=== PATIENT | male | born 1975 | race Caucasian/White ===

== ENCOUNTER 2018-02-04 00:33 | Inpatient (IN) ==
[2018-02-04 01:05] LABS: Bilirubin,Urine Negative (Negative); Blood,Urine Negative (Negative); Clarity,Urine Turbid (Clear); Color,Urine Yellow (Yellow); Glucose,Urine (UA) Normal (Normal); Ketones,Urine Negative (Negative); Leukocyte Esterase,Urine Trace (Negative); Nitrite,Urine Negative (Negative); PH,Urine 6.5 pH Units (5.0-8.0); Protein,Urine Negative (Neg-Trace); Specific Gravity,Urine 1.015 (1.010-1.025); Urobilinogen,Urine Normal (Normal)
[2018-02-04 01:06] LABS: Basophils # 0.1 K/mcL (0.0-0.2); Basophils % 0.6 %; Eosinophils # 0.2 K/mcL (0.0-0.6); Eosinophils % 2.1 %; Hemoglobin 13.9 g/dL (12.9-16.9); Immature Granulocytes % 0.4 % (0-4); Lymphocytes # 1.4 K/mcL (0.6-4.6); Lymphocytes % 17.8 %; Mean Corpuscular HGB Conc 34.8 g/dL (31.6-35.5); Mean Corpuscular Hemoglobin 32.9 pg (28.0-33.3); Mean Corpuscular Volume 94.8 fL (83.0-100.0); Mean Platelet Volume 10.7 fL (9.4-12.4); Monocytes # 0.7 K/mcL (0.0-1.3); Monocytes % 8.4 %; Neutrophils # 5.5 K/mcL (1.6-8.9); Platelet Count 202 K/mcL (140-400); Red Blood Count 4.22 M/mcL (4.19-5.50); Red Cell Distribution Width 13.2 % (11.5-14.5); Segmented Neutrophils % 70.7 %
[2018-02-04 01:08] LABS: Bacteria,Urine None Seen per hpf (None-Few); Hyaline Casts,Urine None Seen per lpf (None-Few); Squamous Epithelial Cell,Urine Few per lpf (None-Few); WBC,Urine 0-3 per hpf (0-3)
[2018-02-04 01:13] LABS: Amphetamine Screen,Urine Negative ng/mL (Cutoff=1000); Barbiturate Screen,Urine Negative ng/mL (Cutoff=200); Benzodiazepines Screen,Urine Negative ng/mL (Cutoff=200); Cannabinoid Screen,Urine Negative ng/mL (Cutoff = 50); Cocaine Screen,Urine Negative ng/mL (Cutoff= 300); Opiate Screen,Urine Negative ng/mL (Cutoff=300); Phencyclidine Screen,Urine Negative ng/mL (Cutoff=25)
[2018-02-04 01:26] LABS: Acetaminophen < 10 mcg/mL (10-20); BUN/Creatinine Ratio 14 (6-26); Blood Urea Nitrogen 10 mg/dL (6-20); Calcium 9.2 mg/dL (8.6-10.3); Carbon Dioxide 26 mEq/L (23-29); Chloride 108 mEq/L (98-107); Ethanol < 10 mg/dL (Less than 10); Glucose 98 mg/dL (70-105); Osmolality,Calculated 289 (280-300); Potassium 3.6 mEq/L (3.5-5.1); Salicylate < 2.5 mg/dL (15.0-30.0); Sodium 140 mEq/L (136-145); eGFR For Non-African Americans > 60 (> 60)
--- NOTE | 2018-02-04 02:10 | Emergency Department Note ---
Disposition Clinical Impression: Medication refill, History of bipolar disorder Disposition: Admitted As Inpatient Condition: Good Time of Disposition: 03:15 General Adult HPI - General Chief complaint: ED Psychiatric Symptoms Stated complaint: psych Time Seen by Provider: 02/04/18 00:35 Source: patient, EMS Mode of arrival: ambulatory Limitations: no limitations Nursing Notes Reviewed: Yes Vital Signs Reviewed: Yes - History of Present Illness HPI Narrative: Patient is a 6-year-old male with a past medical history of bipolar disorder as well as history of drug use presents to the emergency department for medication refill. The patient states that he has not been taking his bipolar medications for the past 3 years and cannot recall the name of them however he does remember taking Seroquel does not recall the others. He states that he is having issues sleeping at night and is also feeling depressed and worthless. He denies any visual or auditory hallucinations. He denies any SI or HI. Pain Scale: 0 - Related Data Previous Rx's Medication Instructions Recorded Quetiapine Fumarate [Seroquel] 200 mg PO HS #60 tablet 04/02/16 Quetiapine Fumarate [SEROquel] 50 mg PO BID #10 tablet 07/30/17 Ibuprofen [Motrin] 600 mg PO Q8HR PRN #30 tab 01/28/18 Allergies Allergy/AdvReac Type Severity Reaction Status Date / Time chlorpromazine Allergy See Verified 07/30/17 01:51 [From Thorazine] Comments All systems ED: reviewed and negative except as stated. Review of Systems: As Per HPI Constitutional: Denies: fever Cardiovascular: Denies: chest pain, palpitations Respiratory: Denies: cough Gastrointestinal: Denies: abdominal pain, nausea Psychiatric: Reports: depression. Denies: anxiety, suicidal thoughts, homicidal thoughts, auditory hallucinations, visual hallucinations Past Medical History - Past Medical History Attestation: Yes The following information was validated with the patient. Medical history: Reports: no medical history, other Surgical history: Reports: no surgical history Psychiatric history: Reports: anxiety, depression, previous psychiatric hospitalization, other - Social History Smoking Status: Current every day smoker Smokeless Tobacco Status: No Alcohol use: Reports: occasionally Drug use: Reports: opiates, marijuana Physical Exam CONSTITUTIONAL: Alert and oriented X3, well-nourished, well appearing, in no apparent distress HEAD: Normocephalic; atraumatic. EYES: PERRL, no scleral icterus. NOSE: The nose is normal in appearance without rhinorrhea RESP: Normal chest excursion with respiration; breath sounds clear and equal bilaterally; no wheezes, rhonchi, or rales CARD: Regular rhythm, without murmurs, rub or gallop ABD: Non-distended; non-tender, soft,without rigidity, rebound or guarding SKIN: Normal for age and race; warm and dry; no apparent lesion PSYCH: Normal affect. Denies HI or SI. - General Limitations: no limitations General appearance: alert, in no apparent distress Course Course Narrative: Discussed plan at this time is for him to undergo medical clearance and then consultation with the 1A team. Patient agrees with this plan. - Reevaluation(s) Reevaluation #1: Patient accepted voluntarily to the A1 team for medication reconciliation. Vital Signs Temperature 98.2 F 02/04/18 00:37 Pulse Rate 73 02/04/18 00:37 Respiratory Rate 16 02/04/18 00:37 Blood Pressure 114/77 02/04/18 00:37 O2 Sat by Pulse Oximetry 98 02/04/18 00:37 Temperature 98.5 F 02/04/18 03:27 Pulse Rate 76 02/04/18 03:27 Respiratory Rate 18 02/04/18 03:27 Blood Pressure 123/84 02/04/18 03:27 O2 Sat by Pulse Oximetry 98 02/04/18 00:37 Oxygen Delivery Oxygen Delivery Room Air Medical Decision Making - Medical Records Medical records reviewed: Yes I reviewed the patient's medical records. - Lab Data Lab results reviewed: Yes I reviewed the patient's lab results. Result diagrams: 02/04/18 00:52 02/04/18 00:52 Lab Results 02/04/18 02/04/18 02/04/18 Range/Units 00:45 00:45 00:52 WBC 7.8 (4.3-11.1) K/mcL RBC 4.22 (4.19-5.50) M/mcL Hgb 13.9 (12.9-16.9) g/dL Hct 40.0 (37.5-50.1) % MCV 94.8 (83.0-100.0) fL MCH 32.9 (28.0-33.3) pg MCHC 34.8 (31.6-35.5) g/dL RDW 13.2 (11.5-14.5) % Plt Count 202 (140-400) K/mcL MPV 10.7 (9.4-12.4) fL Immature Gran % 0.4 (0-4) % Seg Neutrophils % 70.7 % Lymphocytes % 17.8 % Monocytes % 8.4 % Eosinophils % 2.1 % Basophils % 0.6 % Neutrophils # 5.5 (1.6-8.9) K/mcL Lymphocytes # 1.4 (0.6-4.6) K/mcL Monocytes # 0.7 (0.0-1.3) K/mcL Eosinophils # 0.2 (0.0-0.6) K/mcL Basophils # 0.1 (0.0-0.2) K/mcL Sodium (136-145) mEq/L Potassium (3.5-5.1) mEq/L Chloride (98-107) mEq/L Carbon Dioxide (23-29) mEq/L BUN (6-20) mg/dL Creatinine (0.70-1.30) mg/dL Est GFR ( Amer) (> 60) Est GFR (Non-Af Amer) (> 60) BUN/Creatinine Ratio (6-26) Glucose (70-105) mg/dL Calculated Osmolality (280-300) Calcium (8.6-10.3) mg/dL Urine Color Yellow (Yellow) Urine Clarity Turbid A (Clear) Urine pH 6.5 (5.0-8.0) pH Units Ur Specific [place] 1.015 (1.010-1.025) Urine Protein Negative (Neg-Trace) mg/dL Urine Glucose (UA) Normal (Normal) mg/dL Urine Ketones Negative (Negative) mg/dL Urine Blood Negative (Negative) Urine Nitrite Negative (Negative) Urine Bilirubin Negative (Negative) Urine Urobilinogen Normal (Normal) mg/dL Ur Leukocyte Esterase Trace H (Negative) Urine Microscopic RBC 5-15 H (0-3) per hpf Urine Microscopic WBC 0-3 (0-3) per hpf Ur Squamous Epith Cells Few (None-Few) per lpf Urine Bacteria None Seen (None-Few) per hpf Hyaline Casts None Seen (None-Few) per lpf Salicylates (15.0-30.0) mg/dL Urine Opiates Screen Negative (Ywhniw=818) ng/mL Acetaminophen (10-20) mcg/mL Ur Barbiturates Screen Negative (Kohujb=137) ng/mL Ur Phencyclidine Scrn Negative (Cutoff=25) ng/mL Ur Amphetamines Screen Negative (Oomgaa=8162) ng/mL U Benzodiazepines Scrn Negative (Duyieg=944) ng/mL Urine Cocaine Screen Negative (Cutoff= 300) ng/mL U Marijuana (THC) Screen Negative (Cutoff = 50) ng/mL Ur Drug Screen Interp See Below Ethyl Alcohol (Less than 10) mg/dL 02/04/18 Range/Units 00:52 WBC (4.3-11.1) K/mcL RBC (4.19-5.50) M/mcL Hgb (12.9-16.9) g/dL Hct (37.5-50.1) % MCV (83.0-100.0) fL MCH (28.0-33.3) pg MCHC (31.6-35.5) g/dL RDW (11.5-14.5) % Plt Count (140-400) K/mcL MPV (9.4-12.4) fL Immature Gran % (0-4) % Seg Neutrophils % % Lymphocytes % % Monocytes % % Eosinophils % % Basophils % % Neutrophils # (1.6-8.9) K/mcL Lymphocytes # (0.6-4.6) K/mcL Monocytes # (0.0-1.3) K/mcL Eosinophils # (0.0-0.6) K/mcL Basophils # (0.0-0.2) K/mcL Sodium 140 (136-145) mEq/L Potassium 3.6 (3.5-5.1) mEq/L Chloride 108 H (98-107) mEq/L Carbon Dioxide 26 (23-29) mEq/L BUN 10 (6-20) mg/dL Creatinine 0.74 (0.70-1.30) mg/dL Est GFR ( Amer) > 60 (> 60) Est GFR (Non-Af Amer) > 60 (> 60) BUN/Creatinine Ratio 14 (6-26) Glucose 98 (70-105) mg/dL Calculated Osmolality 289 (280-300) Calcium 9.2 (8.6-10.3) mg/dL Urine Color (Yellow) Urine Clarity (Clear) Urine pH (5.0-8.0) pH Units Ur Specific [place] (1.010-1.025) Urine Protein (Neg-Trace) mg/dL Urine Glucose (UA) (Normal) mg/dL Urine Ketones (Negative) mg/dL Urine Blood (Negative) Urine Nitrite (Negative) Urine Bilirubin (Negative) Urine Urobilinogen (Normal) mg/dL Ur Leukocyte Esterase (Negative) Urine Microscopic RBC (0-3) per hpf Urine Microscopic WBC (0-3) per hpf Ur Squamous Epith Cells (None-Few) per lpf Urine Bacteria (None-Few) per hpf Hyaline Casts (None-Few) per lpf Salicylates < 2.5 L (15.0-30.0) mg/dL Urine Opiates Screen (Rurwpa=688) ng/mL Acetaminophen < 10 L (10-20) mcg/mL Ur Barbiturates Screen (Rvmjyp=509) ng/mL Ur Phencyclidine Scrn (Cutoff=25) ng/mL Ur Amphetamines Screen (Ekglhn=6629) ng/mL U Benzodiazepines Scrn (Msiypg=114) ng/mL Urine Cocaine Screen (Cutoff= 300) ng/mL U Marijuana (THC) Screen (Cutoff = 50) ng/mL Ur Drug Screen Interp Ethyl Alcohol < 10 (Less than 10) mg/dL Attestation Statement - Attestation Attestation: I examined this patient and my medical decision-making was reviewed with the Resident Physician. I agree with the documented findings, disposition and treatment plan as described except to the extent set forth below. Patient not been taking his bipolar medications, he is feeling hopeless and helpless. He is not suicidal or homicidal. He was a value to by [facility] and they are recommending admission. He will be admitted on a voluntary basis.
[2018-02-04] MEDS ORDERED: traZODone 50 MG TABLET PO PRN (03:14)
[2018-02-04] MEDS ORDERED: Mag Hydrox/Al Hydrox/Simeth 30 ML UDC PO PRN (03:14)
[2018-02-04] MEDS ORDERED: Ibuprofen 400 MG TABLET PO PRN (03:14)
[2018-02-04] MEDS ORDERED: Haloperidol Lactate 5 MG/ML VIAL IM PRN (03:14)
[2018-02-04] MEDS ORDERED: *HR* LORazepam 2 MG/ML VIAL IM PRN (03:14)
[2018-02-04] MEDS ORDERED: hydrOXYzine pamoate 25 MG CAPSULE PO PRN (03:14)
[2018-02-04] MEDS ORDERED: *HR* LORazepam 1 MG TABLET PO PRN (03:14)
[2018-02-04] MEDS ORDERED: Nicotine 2 MG GUM BC PRN (03:14)
[2018-02-04] MEDS ORDERED: MOM Conc 10 ML UD.LIQ PO PRN (03:14)
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
--- NOTE | 2018-02-05 11:54 | Psychiatry Progress Note ---
Date of Encounter: 02/05/18 Time of Encounter: 11:45 Subjective Interval history: D the patient is a 42-year-old white male with adjustment disorder. Chief complaint: I was able to sleep better. I think academically increased but not to 900. I think that messed me up before. The patient has major concerns regarding his residential resources his ability to get his money and food stamps. Outside information suggests that he had community action for his funds. The patient is to see the forensic social worker to discuss these concerns. Nonetheless he does not think that he is his optimal dose of Seroquel. He notes no particular side effects to the medicine at this time. He notes previously he lost weight as he was active and had limited resources of places to eat. Review of Systems Psychiatric: Reports: depression, suicidal ideation, change in appetite Results - Vital Signs Vital Signs: Temp Pulse Resp BP Pulse Ox 98.2 F 57 16 131/70 98 02/05/18 09:00 02/05/18 09:00 02/05/18 09:00 02/05/18 09:00 02/04/18 00:37 Assessment and Plan (1) Adjustment disorder with depressed mood Current visit: Yes Status: Acute Plan: Continue hospitalization, Close observation, Suicide Precautions per unit protocol, Encourage participation in unit milieu, Group Therapy, Monitor sleep, Monitor appetite, Secure weapons, Family/Supportive other meeting Risks, benefits, side effects, alternatives discussed w/pt: Yes Patient agreeable to treatment: Yes (2) Cigarette smoker Current visit: Yes Status: Chronic Plan: Other Risks, benefits, side effects, alternatives discussed w/pt: Yes Patient agreeable to treatment: Yes (3) Suicidal ideation Current visit: No Status: Acute Plan: Encourage participation in unit milieu, Group Therapy Risks, benefits, side effects, alternatives discussed w/pt: Yes Patient agreeable to treatment : Yes (4) Alcohol dependence Current visit: No Status: Chronic Plan: Monitor appetite Risks, benefits, side effects, alternatives discussed w /pt: Yes Patient agreeable to treatment: Yes Qualifiers: Substance use status: with intoxication Complication of substance-induced condition: uncomplicated Qualified Code(s): F10.220 - Alcohol dependence with intoxication, uncomplicated (5) Antisocial personality disorder Current visit: No Status: Chronic Plan: Encourage participation in unit milieu, Group Therapy Risks, benefits, side effects, alternatives discussed w/pt: Yes Patient agreeable to treatment : Yes Consult Discharge Plan - Plan Referrals: NONE,PCP [Primary Care Provider] - Psychiatry Exam - Constitutional Vitals: Temp Pulse Resp BP Pulse Ox 98.2 F 57 16 131/70 98 02/05/18 09:00 02/05/18 09:00 02/05/18 09:00 02/05/18 09:00 02/04/18 00:37 General appearance: age & developmentally appropriate, well-groomed, thin - Musculoskeletal Gait: normal, brisk Station: relaxed Strength & Tone: normal for patient - Psychiatric Patient Orientation: Yes Person, Yes Time, Yes Place Level of alertness: Alert Behavior: calm, cooperative Psychomotor activity: Normal Eye Contact: Maintains Eye Contact Mood Description: Depressed Affect description: congruent with mood, full range, dysphoric Speech Volume: Normal Speech pattern: normal rate, normal rhythm, normal tone, fluent, spontaneous Language & Vocabulary: consistent with education Thought Process: Linear, Goal Oriented Thought Content: Yes Suicidal ideation, No Homicidal ideation, No Overt delusions Perceptual Disturbances: No Auditory hallucinations, No Visual hallucinations Attention Span Ability: Capable of Focused Attention Memory Description: Grossly Intact Patient Reliability: Reliable Historian Fund of knowledge: Yes abstraction ability, Yes average Intelligence Estimate: Average Judgment: Fair Insight: Partial
--- NOTE | 2018-02-06 13:37 | Psychiatry Progress Note ---
Date of Encounter: 02/06/18 Time of Encounter: 13:30 Subjective Interval history: ID: 42 yo W Male CC: I sleep good HPI: The patient has slept better. Throughout this period of time. The patient has been reported no suicidal ideation. He has been stable. He has not cooperated fully in his discharge planning to this point but he tells me that he is aware that he could go to the homeless prison or he could go to a friend's house. The patient would agrees to an increase of Seroquel from 400 600. This is used in some studies as a loading dose. I offered the opportunity to go to 800 mg tomorrow but the patient would like to be considered for discharge soon so that he can get out and see his community recreation coordinator to help with financial matters. Side effects of Seroquel were discussed. The need for abstinence was discussed the drug alcohol interaction was discussed. Review of Systems Psychiatric: Reports: depression, change in appetite Results - Vital Signs Vital Signs: Temp Pulse Resp BP Pulse Ox 97.3 F L 87 14 93/66 98 02/06/18 09:00 02/06/18 09:00 02/06/18 09:00 02/06/18 09:00 02/04/18 00:37 Assessment and Plan (1) Adjustment disorder with depressed mood Current visit: Yes Status: Acute Risks, benefits, side effects, alternatives discussed w/pt: Yes Patient agreeable to treatment: Yes (2) Cigarette smoker Current visit: Yes Status: Chronic Risks, benefits, side effects, alternatives discussed w/pt: Yes Patient agreeable to treatment: Yes (3) Suicidal ideation Current visit: No Status: Acute Risks, benefits, side effects, alternatives discussed w/pt: Yes Patient agreeable to treatment: Yes (4) Alcohol dependence Current visit: No Status: Chronic Risks, benefits, side effects, alternatives discussed w/pt: Yes Patient agreeable to treatment: Yes Qualifiers: Substance use status: with intoxication Complication of substance-induced condition: uncomplicated Qualified Code(s): F10.220 - Alcohol dependence with intoxication, uncomplicated (5) Antisocial personality disorder Current visit: No Status: Chronic Risks, benefits, side effects, alternatives discussed w/pt: Yes Patient agreeable to treatment: Yes Consult Discharge Plan - Plan Referrals: NONE,PCP [Primary Care Provider] - Psychiatry Exam - Constitutional Vitals: Temp Pulse Resp BP Pulse Ox 97.3 F L 87 14 93/66 98 02/06/18 09:00 02/06/18 09:00 02/06/18 09:00 02/06/18 09:00 02/04/18 00:37 General appearance: age & developmentally appropriate, well-groomed, well- nourished - Musculoskeletal Gait: normal Station: relaxed Strength & Tone: normal for patient - Psychiatric Patient Orientation: Yes Person, Yes Time, Yes Place Level of alertness: Alert Behavior: calm, cooperative Psychomotor activity: Normal Eye Contact: Maintains Eye Contact Mood Description: Depressed Affect description: congruent with mood, full range Speech Volume: Normal Speech pattern: normal rate, normal rhythm, normal tone, fluent, spontaneous Language & Vocabulary: consistent with education Thought Process: Linear, Goal Oriented Thought Content: No Suicidal ideation, No Homicidal ideation, No Overt delusions Perceptual Disturbances: No Auditory hallucinations, No Visual hallucinations Attention Span Ability: Capable of Focused Attention Memory Description: Grossly Intact Patient Reliability: Reliable Historian Fund of knowledge: Yes abstraction ability, Yes aware of current events Intelligence Estimate: Average Judgment: Fair Insight: Partial
[2018-02-07 09:08] VITALS: BP 95/64
--- NOTE | 2018-02-07 10:10 | Discharge Summary ---
Date of Encounter: 02/07/18 Time of Encounter: 10:00 Diagnosis - Discharge Diagnosis (1) Adjustment disorder with depressed mood Status: Acute (2) Cigarette smoker Status: Chronic (3) Suicidal ideation Status: Acute (4) Alcohol dependence Status: Chronic Qualifiers: Substance use status: with intoxication Complication of substance-induced condition: uncomplicated Qualified Code(s): F10.220 - Alcohol dependence with intoxication, uncomplicated (5) Antisocial personality disorder Status: Chronic Medications - Discharge Medications Prescriptions: Quetiapine Fumarate [Seroquel] 600 mg PO HS 30 Days #60 tablet Quetiapine Fumarate [Seroquel] 600 mg PO HS 30 Days #60 tablet 02/07/18 [Rx] 3 Allergy/AdvReac Type Severity Reaction Status Date / Time chlorpromazine Allergy See Verified 07/30/17 01:51 [From Thorazine] Comments Provider Date of admission: 02/04/18 02:27 Primary care physician: PCP NONE Discharging clinician: Romain Long Psychiatry Exam - Constitutional Vitals: Temp Pulse Resp BP Pulse Ox 97.4 F L 84 18 95/64 98 02/07/18 09:00 02/07/18 09:00 02/07/18 09:00 02/07/18 09:00 02/04/18 00:37 General appearance: age & developmentally appropriate - Musculoskeletal Gait: normal Station: other Strength & Tone: normal for patient - Psychiatric Patient Orientation: Yes Person, Yes Time, Yes Place Level of alertness: Alert Behavior: calm, cooperative Psychomotor activity: Normal Eye Contact: Maintains Eye Contact Mood Description: Euthymic/stable Affect description: congruent with mood, full range Speech Volume: Normal Speech pattern: normal rate, normal rhythm, normal tone, fluent, spontaneous Language & Vocabulary: consistent with education Thought Process: Linear, Goal Oriented Thought Content: No Suicidal ideation, No Homicidal ideation, No Overt delusions Perceptual Disturbances: No Auditory hallucinations, No Visual hallucinations Attention Span Ability: Capable of Focused Attention Memory Description: Grossly Intact Patient Reliability: Reliable Historian Fund of knowledge: Yes abstraction ability, Yes aware of current events Intelligence Estimate: Average Judgment: Limited Insight: Minimal Hospital Course Hospital course: Mr. Griffin is a 42 year old male The patient is a 42-year-old white male he is currently homeless. Chief complaint I had suicidal thinking so I came into the hospital for got worse. History of present illness the patient was previously hospitalized and previously treated for an adjustment disorder. Another diagnosis of a history of major depression disorder was given but the patient did not meet criteria for major depressive episode at the time of admission. Rather he had insomnia and periods of low mood and suicidal ideation without other neurovegetative signs of major depression. The patient responded favorably to the medicine Seroquel. Have significant history of bipolar disorder. But the patient had been in correctional facilities and had not been treated with Seroquel recently due to formulary restrictions. The patient was able to tolerate a modified and increased titration of Seroquel first to 100 mg -200 mg then to 400 mg then to 600 mg at 600 mg he reported sleeping well and tolerating the medicine without significant side effects. The patient planned to follow-up at a local mental health [facility] or stay with friends. He was given information about local resources. He had no suicidal ideation time discharge. Time spent discussing smoking cessation with patient: 3 to 10 minutes Does patient wish to continue nicotine replacement upon disc: No - Time Spent with Patient Total time spent providing and/or coordinating discharge services: Less than 30 minutes Assessment and Plan - Patient/Caregiver Discharge Instructions Activity: resume usual activities as tolerated Diet: regular diet - Follow up Plan Follow up with: Stepan Engel [facility] [Outside] - 02/20/18 2:00 pm (The above appointment is with Milagros. DUE TO PRIOR MISSED APPOINTMENTS, YOU MUST CONFIRM THIS APPOINTMENT WITH IVIS AT [phone] BY 02/11/2018 AT 4:00PM IN ORDER FOR THIS APPOINTMENT TO BE HELD FOR YOU. IF YOU GET IVIS'S VOICEMAIL WHEN YOU CALL TO CONFIRM, LEAVE A MESSAGE TELLING HER YOU PLAN TO ATTEND SO THE APPOINTMENT WILL BE HELD FOR YOU. Please complete and bring the [facility] intake packet you were provided at the hospital to this appointment. When you come to your first appointment, you will be meeting with business office staff, meeting with a counselor, and developing a treatment plan. You will receive follow- up appointments for on-going services, which could include community support, mental health and substance abuse counseling, groups/partial hospitalization programming and medication assisted treatment. You will also need to bring the following to your first appointment as well: 1) proof of income, 2) proof of residency, 3) your social security card, 4) photo ID, 5) your insurance card and 6) if you do not have insurance but have applied for Medicaid, please bring verification you have applied. The above appointment(s) reflects first availability.) Ivis Shaver [Advanced Practice Nurse] - 03/05/18 11:00 am (The above appointment is with Ivis Shaver CNP, at [facility]. This appointment is to establish you with a primary care provider. Your needs for medication and/or Vivitrol will be assessed and treated as indicated as well. Please arrive 15 minutes early to complete paperwork. Please bring your insurance card, photo ID and list of current medications to your first appointment. The above appointment(s) reflects first availability. You may contact the office regularly to check for cancellations that may allow you to be seen sooner.) Functional capacity at discharge: independent ambulation Overall status at discharge: Stable Disposition: Home, Self-Care Quality - Multiple Antipsychotics Patient discharged on 2 or more antipsychotic medications: No Procedures - Procedures Procedures: Medication Management, Crisis Stabilization, Supportive Therapy, Group Therapy, Psychoeducational Therapy
== END 2018-02-07 13:00 | disposition home or self-care (01) | DRG 881 ==
LOC: EMEROOARM 00:33 → SUATTDRO 02:27 → 1ANU 02:27
PROVIDERS: ADMIT Psychiatry & Neurology Psychiatry; ATTEND Psychiatry & Neurology Forensic Psychiatry

== ENCOUNTER 2019-02-12 14:33 | Inpatient (IN) ==
--- NOTE | 2019-02-12 15:06 | Emergency Department Note ---
Disposition Clinical Impression: Manic behavior Disposition: Still a Patient Condition: Good Referrals: NONE,PCP [Primary Care Provider] - Time of Disposition: 17:55 Psych HPI - General Stated Complaint: SI Time Seen by Provider: 02/12/19 14:35 Source: patient Mode of arrival: EMS Limitations: no limitations Nursing Notes Reviewed: Yes Vital Signs Reviewed: Yes - History of Present Illness HPI Narrative: 43-year-old male with a past medical history of previous hospitalization for mental health that reports he has been without his medications for proximally 6 months since going to prison. Pt reports that he is homeless. He reports that he needs his medication and wants to talk to [facility] At some point during our initial encounter, he became beligerent and threatened me if I did not "leave him the fuck alone." I explained to the patient that I needed to medically clear him before he could talk to [facility] and get his medication. One of the tech's explained the situation to him while raising her voice to him and he became more compliant. - Related Data Previous Rx's Medication Instructions Recorded Quetiapine Fumarate [Seroquel] 600 mg PO HS 30 Days #60 tablet 02/07/18 Allergies Allergy/AdvReac Type Severity Reaction Status Date / Time chlorpromazine Allergy See Verified 03/08/18 12:39 [From Thorazine] Comments Constitutional: Denies: fever, chills Cardiovascular: Denies: chest pain, palpitations Gastrointestinal: Denies: abdominal pain, nausea, vomiting, diarrhea Neurological: Denies: headache, weakness Psychiatric: Reports: suicidal thoughts, homicidal thoughts. Denies: auditory hallucinations, visual hallucinations Past Medical History - Past Medical History Attestation: Yes The following information was validated with the patient. Medical history: Reports: no medical history, other Surgical history: Reports: no surgical history Psychiatric history: Reports: anxiety, depression, previous psychiatric ho spitalization - Social History Smoking Status: Current every day smoker Smokeless Tobacco Status: No Alcohol use: Reports: occasionally Drug use: Reports: opiates, marijuana, prescription drug abuse, other Physical Exam General: Agitated. Verbally combative. Appears older than stated age. Thin. Head: atraumatic, normocephalic. ENT: No conjunctival injection, no scleral icterus. Neuro: No focal deficits, no speech deficit, no facial droop, mentating well. BUE/BLE Str 5/5. Pulm: Lungs CTAB anteriorly. No wheezes, rales, ronchi. Cardio: RRR no m/r/g. Chest not tender to palpation. Abd: Soft, non-distended. Normoactive bowel sounds. Non-tender to palpation. No guarding. Non rigid. Extremities: Radial pulses 2+ lior, dorsalis pedis/posterior tibialis 2+ lior. No LE edema. No cyanosis, clubbing. Skin: warm, dry, intact. No rashes. Psych: Agitated. Does not appear to be responding to internal stimulus. Pressured speech. Flight of ideas. - General General appearance: alert, in no apparent distress Course Vital Signs Temperature 98.0 F 02/12/19 14:35 Pulse Rate 93 02/12/19 14:35 Respiratory Rate 18 02/12/19 14:35 Blood Pressure 115/86 02/12/19 14:35 O2 Sat by Pulse Oximetry 97 02/12/19 14:35 Temperature 98.0 F 02/12/19 14:35 Pulse Rate 93 02/12/19 14:35 Respiratory Rate 18 02/12/19 14:35 Blood Pressure 115/86 02/12/19 14:35 O2 Sat by Pulse Oximetry 97 02/12/19 14:35 Oxygen Delivery Oxygen Delivery Room Air Psych - MDM Narrative Medical decision making narrative: Will order psych clearance labs and call [facility]. 175: Pt attempted to leave the department and was stopped by security. Will order 5 of Haldol, 2 of Ativan, and 50 of Benadryl IM. Will need to order repeat ethanol level as his first level was elevated. Pt will be signed out to night doc Dr. Doug Lua, please see his note for full results of the workup and dispos ition. - Lab Data Result diagrams: 02/12/19 15:30 02/12/19 15:30 Lab Results 02/12/19 02/12/19 02/12/19 Range/Units 15:30 15:30 17:47 WBC 5.0 (4.3-11.1) K/mcL RBC 4.48 (4.19-5.50) M/mcL Hgb 14.4 (12.9-16.9) g/dL Hct 42.1 (37.5-50.1) % MCV 94.0 (83.0-100.0) fL MCH 32.1 (28.0-33.3) pg MCHC 34.2 (31.6-35.5) g/dL RDW 12.9 (11.5-14.5) % Plt Count 224 (140-400) K/mcL MPV 10.2 (9.4-12.4) fL Immature Gran % 0.2 (0-4) % Seg Neutrophils % 61.9 % Lymphocytes % 26.2 % Monocytes % 10.1 % Eosinophils % 1.0 % Basophils % 0.6 % Neutrophils # 3.1 (1.6-8.9) K/mcL Lymphocytes # 1.3 (0.6-4.6) K/mcL Monocytes # 0.5 (0.0-1.3) K/mcL Eosinophils # 0.1 (0.0-0.6) K/mcL Basophils # 0.0 (0.0-0.2) K/mcL Sodium 142 (136-145) mEq/L Potassium 3.2 L (3.5-5.1) mEq/L Chloride 106 (98-107) mEq/L Carbon Dioxide 29 (23-29) mEq/L BUN 9 (6-20) mg/dL Creatinine 0.68 L (0.70-1.30) mg/dL Est GFR ( Amer) > 60 (> 60) Est GFR (Non-Af Amer) > 60 (> 60) BUN/Creatinine Ratio 13 (6-26) Glucose 79 (70-105) mg/dL Calculated Osmolality 292 (280-300) Calcium 8.7 (8.6-10.3) mg/dL Urine Color Yellow (Yellow) Urine Clarity Clear (Clear) Urine pH 6.0 (5.0-8.0) pH Units Ur Specific [place] 1.014 (1.010-1.025) Urine Protein Negative (Neg-Trace) mg/dL Urine Glucose (UA) Normal (Normal) mg/dL Urine Ketones Negative (Negative) mg/dL Urine Blood Negative (Negative) Urine Nitrite Negative (Negative) Urine Bilirubin Negative (Negative) Urine Urobilinogen Normal (Normal) mg/dL Ur Leukocyte Esterase Negative (Negative) Salicylates < 2.5 L (15.0-30.0) mg/dL Acetaminophen < 10 L (10-20) mcg/mL Ur Drug Screen Interp Ethyl Alcohol 143 H (Less than 10) mg/dL 02/12/19 Range/Units 17:47 WBC (4.3-11.1) K/mcL RBC (4.19-5.50) M/mcL Hgb (12.9-16.9) g/dL Hct (37.5-50.1) % MCV (83.0-100.0) fL MCH (28.0-33.3) pg MCHC (31.6-35.5) g/dL RDW (11.5-14.5) % Plt Count (140-400) K/mcL MPV (9.4-12.4) fL Immature Gran % (0-4) % Seg Neutrophils % % Lymphocytes % % Monocytes % % Eosinophils % % Basophils % % Neutrophils # (1.6-8.9) K/mcL Lymphocytes # (0.6-4.6) K/mcL Monocytes # (0.0-1.3) K/mcL Eosinophils # (0.0-0.6) K/mcL Basophils # (0.0-0.2) K/mcL Sodium (136-145) mEq/L Potassium (3.5-5.1) mEq/L Chloride (98-107) mEq/L Carbon Dioxide (23-29) mEq/L BUN (6-20) mg/dL Creatinine (0.70-1.30) mg/dL Est GFR ( Amer) (> 60) Est GFR (Non-Af Amer) (> 60) BUN/Creatinine Ratio (6-26) Glucose (70-105) mg/dL Calculated Osmolality (280-300) Calcium (8.6-10.3) mg/dL Urine Color (Yellow) Urine Clarity (Clear) Urine pH (5.0-8.0) pH Units Ur Specific [place] (1.010-1.025) Urine Protein (Neg-Trace) mg/dL Urine Glucose (UA) (Normal) mg/dL Urine Ketones (Negative) mg/dL Urine Blood (Negative) Urine Nitrite (Negative) Urine Bilirubin (Negative) Urine Urobilinogen (Normal) mg/dL Ur Leukocyte Esterase (Negative) Salicylates (15.0-30.0) mg/dL Acetaminophen (10-20) mcg/mL Ur Drug Screen Interp See Below Ethyl Alcohol (Less than 10) mg/dL Psychiatric Medical Clearance - Medical Clearance Checklist Medical History: No Social History Section defined Current Vitals: Last Vital Signs Temp 98.0 F 02/12/19 14:35 Pulse 93 02/12/19 14:35 Resp 18 02/12/19 14:35 BP 115/86 02/12/19 14:35 Pulse Ox 97 02/12/19 14:35 Psychiatric Lab Panel: Drug Levels and Toxicity 02/12/19 15:30 Acetaminophen < 10 L Ethyl Alcohol 143 H Abnormal Labs: Abnormal lab results Potassium 3.2 mEq/L (3.5-5.1) L 02/12/19 15:30 Creatinine 0.68 mg/dL (0.70-1.30) L 02/12/19 15:30 Salicylates < 2.5 mg/dL (15.0-30.0) L 02/12/19 15:30 Acetaminophen < 10 mcg/mL (10-20) L 02/12/19 15:30 Ethyl Alcohol 143 mg/dL (Less than 10) H 02/12/19 15:30 Statement of Medical Clearance: I have evaluated the patient, reviewed diagnostic information, and certify that the patient's medical condition is sufficiently stable that transfer to the psychiatric unit does not pose a significant risk of deterioration. Attestation Statement - Attestation Attestation: I, Gino Anglin, examined this patient and my medical decision-making was reviewed with the VERIFY REP/PA/Advanced Practice Nurse/Resident Physician. I agree with the documented findings, disposition and treatment plan as described except to the extent set forth below. 43-year-old male presents emergency Department with concerns of suicidal ideation and increased agitation. Patient states he has been unable to take his medications over the past 6 months while he was in prison. He is agitated in the room, pacing back and forth and threatened the resident during the evaluation because he wanted to be left alone. Patient is likely in a manic phase with flight of ideas and pressured speech. Patient denies illicit drug use recently. Patient was medically cleared and evaluated by behavioral health. Patient care transferred to Dr. Lua Pending re-evaluation and disposition.
[2019-02-12 15:59] LABS: Basophils % 0.6 %; Eosinophils # 0.1 K/mcL (0.0-0.6); Hematocrit 42.1 % (37.5-50.1); Hemoglobin 14.4 g/dL (12.9-16.9); Immature Granulocytes % 0.2 % (0-4); Lymphocytes # 1.3 K/mcL (0.6-4.6); Lymphocytes % 26.2 %; Mean Corpuscular HGB Conc 34.2 g/dL (31.6-35.5); Mean Corpuscular Hemoglobin 32.1 pg (28.0-33.3); Mean Platelet Volume 10.2 fL (9.4-12.4); Monocytes # 0.5 K/mcL (0.0-1.3); Monocytes % 10.1 %; Neutrophils # 3.1 K/mcL (1.6-8.9); Platelet Count 224 K/mcL (140-400); Red Blood Count 4.48 M/mcL (4.19-5.50); Red Cell Distribution Width 12.9 % (11.5-14.5); Segmented Neutrophils % 61.9 %
[2019-02-12 16:17] LABS: Acetaminophen < 10 mcg/mL (10-20); BUN/Creatinine Ratio 13 (6-26); Blood Urea Nitrogen 9 mg/dL (6-20); Calcium 8.7 mg/dL (8.6-10.3); Carbon Dioxide 29 mEq/L (23-29); Chloride 106 mEq/L (98-107); Ethanol 143 mg/dL (Less than 10); Glucose 79 mg/dL (70-105); Osmolality,Calculated 292 (280-300); Potassium 3.2 mEq/L (3.5-5.1); Salicylate < 2.5 mg/dL (15.0-30.0); Sodium 142 mEq/L (136-145); eGFR For African Americans > 60 (> 60); eGFR For Non-African Americans > 60 (> 60)
[2019-02-12 17:51] LABS: Bilirubin,Urine Negative (Negative); Blood,Urine Negative (Negative); Clarity,Urine Clear (Clear); Color,Urine Yellow (Yellow); Glucose,Urine (UA) Normal (Normal); Ketones,Urine Negative (Negative); Leukocyte Esterase,Urine Negative (Negative); Nitrite,Urine Negative (Negative); Protein,Urine Negative (Neg-Trace); Specific Gravity,Urine 1.014 (1.010-1.025); Urobilinogen,Urine Normal (Normal)
[2019-02-12] MEDS ORDERED: *HR* LORazepam 2 MG/ML VIAL IM ONE (17:53)
[2019-02-12] MEDS ORDERED: Haloperidol Lactate 5 MG/ML VIAL IM ONE (17:53)
[2019-02-12 18:24] LABS: Amphetamine Screen,Urine Positive ng/mL (Cutoff=1000); Barbiturate Screen,Urine Negative ng/mL (Cutoff=200); Benzodiazepines Screen,Urine Negative ng/mL (Cutoff=200); Cannabinoid Screen,Urine Negative ng/mL (Cutoff = 50); Cocaine Screen,Urine Negative ng/mL (Cutoff= 300); Opiate Screen,Urine Negative ng/mL (Cutoff=300); Phencyclidine Screen,Urine Negative ng/mL (Cutoff=25)
[2019-02-12] MEDS ORDERED: traZODone 50 MG TABLET PO PRN (20:25)
[2019-02-12] MEDS ORDERED: MOM Conc 10 ML UD.LIQ PO PRN (20:25)
[2019-02-12] MEDS ORDERED: hydrOXYzine pamoate 25 MG CAPSULE PO PRN (20:25)
[2019-02-12] MEDS ORDERED: *HR* LORazepam 2 MG/ML VIAL IM PRN (20:25)
[2019-02-12] MEDS ORDERED: Haloperidol Lactate 5 MG/ML VIAL IM PRN (20:25)
[2019-02-12] MEDS ORDERED: Ibuprofen 400 MG TABLET PO PRN (20:25)
[2019-02-12] MEDS ORDERED: Mag Hydrox/Al Hydrox/Simeth 30 ML UDC PO PRN (20:25)
[2019-02-12] MEDS ORDERED: *HR* LORazepam 1 MG TABLET PO PRN (20:25)
--- NOTE | 2019-02-13 12:10 | Psychiatry History & Physical ---
Date of Encounter: 02/13/19 Time of Encounter: 12:08 History of Present Illness Patient Stated Chief Complaint: Suicidal ideation Medicare Admission Attestation: For traditional Medicare patients the provided hospital inpatient services are reasonable and necessary and in the case of services not specified as inpatient-only under 42 CFR 419.22 (n), that they are appropriately provided as inpatient services in accordance 42 CFR 412.3. For [facility] the patient may reasonably be expected to be discharged or transferred to a hospital within 96 hours after admission to the Critical [facility]. Admitted From: Emergency Dept Plans for Post Hospital Care: Home History of Present Illness: Mr. Griffin is a 43 year old male with PMH of multiple psychiatric hospitalizations presented to ED for suicidal ideation. Patient was recently released from longterm where he spent unknown amount of time without taking his medications. Requested to be seen by [facility]; became agitated and combative while waiting in the ED which resulted in administration of Haldol, Ativan, and Benadryl; patient was presumably in acute dave. On exam today, patient is irritable and impatient with interview. Reports suicidal ideation but denies homicidal ideation. Wants to be left alone to sleep and not answer questions. Denies hallucinations or delusions. Reports increased stress because of people asking me questions. Requests to be put on seroquil 300mg qd; it is unclear how long he has been off of it as in the ED he reported 6 months due to spending time in longterm, then on interview today he initially said 6 weeks then 3 weeks. Reported being on thorazine in the past. Requested Vibryd for back pain but denies trying it in the past; denied trying Cymbalta when asked. Patient is homeless, positive smoking hx, positive EtOH hx, illicit drug use; notably, UDS positive for alcohol and amphetamine on admission. Past Med Surg Social Fam HX - Past Medical History Medical history: no medical history, other - Past Surgical History Surgical History: no surgical history - Social History Smoking Status: Current every day smoker Smokeless Tobacco Status: No Alcohol use: occasionally Drug use: opiates, marijuana, prescription drug abuse, other - Family History Mother Adopted: No Living Status: Unknown Hx Family Cardiac Disorders: No Hx Family Respiratory Disorders: No Hx Family Cancer: Yes (mother has lung cancer) Hx Family GI Disorders: No Hx Family Endocrine Disorder: No Hx Family Neuromuscular Disorders: No Hx Family Neurologic Disorders: No Hx Family HEENT Disorders: No Hx Family Autoimmune Disorders: No Medications & Allergies Quetiapine Fumarate [Seroquel] 100 mg PO HS 02/13/19 [History] Allergy/AdvReac Type Severity Reaction Status Date / Time chlorpromazine Allergy See Verified 03/08/18 12:39 [From Thorazine] Comments Review of Systems Constitutional: Denies: fever, chills Eyes: Denies: vision change Ears, Nose, Throat: Denies: hearing loss Cardiovascular: Denies: chest pain, palpitations Respiratory: Denies: cough, dyspnea Gastrointestinal: Denies: abdominal pain, nausea Genitourinary male: Denies: dysuria Musculoskeletal: Reports: back pain. Denies: joint swelling Integumentary: Denies: rash, lesions Neurological: Denies: headache, weakness Psychiatric: Reports: depression, anxiety, suicidal ideation, irritability. Denies: homicidal ideation, auditory hallucinations, visual hallucinations Endocrine: Reports: fatigue Hematologic/Lymphatic: Denies: easy bruising Allergic/Immunologic: Denies: urticaria Exam - HEENT Head exam IM: Present: atraumatic, normocephalic Eye exam IM: Present: EOMI, normal appearance ENT exam IM: Present: mucous membranes moist - Neurological Neurological exam: Present: CN II-XII intact (grossly) - Respiratory Respiratory exam IM: Absent: respiratory distress - GI/Abdominal GI/Abdominal exam IM: Absent: no peritoneal signs - Extremities Extremities exam IM: Absent: full ROM - Skin Skin exam IM: Present: dry, warm. Absent: abrasion, rash - Constitutional Vitals: Temp Pulse Resp BP Pulse Ox 97.9 F 85 16 116/79 98 02/13/19 09:00 02/13/19 09:00 02/13/19 09:00 02/13/19 09:00 02/13/19 09:00 General appearance: age & developmentally appropriate, thin - Musculoskeletal Gait: normal Station: relaxed Strength & Tone: normal for patient - Psychiatric Patient Orientation: Yes Person, Yes Time, Yes Place, Yes Circumstance Level of alertness: Alert Behavior: calm, agitated, uncooperative, withdrawn Psychomotor activity: Slowed Eye Contact: Avoids Eye Contact Mood Description: Angry, Irritable Affect description: flat Speech Volume: Normal Speech pattern: normal rate, normal rhythm, normal tone, fluent Language & Vocabulary: limited Thought Process: Intact, Logical, Goal Oriented Thought Content: Yes Suicidal ideation, No Homicidal ideation, No Overt delusions Perceptual Disturbances: No Auditory hallucinations, No Visual hallucinations Attention Span Ability: Unable to Sustain Attention Memory Description: Grossly Intact Patient Reliability: Not Reliable Historian Fund of knowledge: Yes average Intelligence Estimate: Average Judgment: Poor Insight: Minimal Results - Drug Levels and Toxicology Drug Levels and Toxicology: Drug Levels and Toxicity 02/12/19 02/12/19 02/12/19 15:30 17:47 18:08 Urine Opiates Screen Negative Acetaminophen < 10 L Ur Barbiturates Screen Negative Ur Phencyclidine Scrn Negative Ur Amphetamines Screen Positive H U Benzodiazepines Scrn Negative Urine Cocaine Screen Negative U Marijuana (THC) Screen Negative Ethyl Alcohol 143 H 88 H - Labs Labs: Laboratory Last Values WBC 5.0 K/mcL (4.3-11.1) 02/12/19 15:30 RBC 4.48 M/mcL (4.19-5.50) 02/12/19 15:30 Hgb 14.4 g/dL (12.9-16.9) 02/12/19 15:30 Hct 42.1 % (37.5-50.1) 02/12/19 15:30 MCV 94.0 fL (83.0-100.0) 02/12/19 15:30 MCH 32.1 pg (28.0-33.3) 02/12/19 15:30 MCHC 34.2 g/dL (31.6-35.5) 02/12/19 15:30 RDW 12.9 % (11.5-14.5) 02/12/19 15:30 Plt Count 224 K/mcL (140-400) 02/12/19 15:30 MPV 10.2 fL (9.4-12.4) 02/12/19 15:30 Immature Gran % 0.2 % (0-4) 02/12/19 15:30 Seg Neutrophils % 61.9 % 02/12/19 15:30 Lymphocytes % 26.2 % 02/12/19 15:30 Monocytes % 10.1 % 02/12/19 15:30 Eosinophils % 1.0 % 02/12/19 15:30 Basophils % 0.6 % 02/12/19 15:30 Neutrophils # 3.1 K/mcL (1.6-8.9) 02/12/19 15:30 Lymphocytes # 1.3 K/mcL (0.6-4.6) 02/12/19 15:30 Monocytes # 0.5 K/mcL (0.0-1.3) 02/12/19 15:30 Eosinophils # 0.1 K/mcL (0.0-0.6) 02/12/19 15:30 Basophils # 0.0 K/mcL (0.0-0.2) 02/12/19 15:30 Sodium 142 mEq/L (136-145) 02/12/19 15:30 Potassium 3.2 mEq/L (3.5-5.1) L 02/12/19 15:30 Chloride 106 mEq/L (98-107) 02/12/19 15:30 Carbon Dioxide 29 mEq/L (23-29) 02/12/19 15:30 BUN 9 mg/dL (6-20) 02/12/19 15:30 Creatinine 0.68 mg/dL (0.70-1.30) L 02/12/19 15:30 Est GFR ( Amer) > 60 (> 60) 02/12/19 15:30 Est GFR (Non-Af Amer) > 60 (> 60) 02/12/19 15:30 BUN/Creatinine Ratio 13 (6-26) 02/12/19 15:30 Glucose 79 mg/dL (70-105) 02/12/19 15:30 Calculated Osmolality 292 (280-300) 02/12/19 15:30 Calcium 8.7 mg/dL (8.6-10.3) 02/12/19 15:30 Urine Color Yellow (Yellow) 02/12/19 17:47 Urine Clarity Clear (Clear) 02/12/19 17:47 Urine pH 6.0 pH Units (5.0-8.0) 02/12/19 17:47 Ur Specific [place] 1.014 (1.010-1.025) 02/12/19 17:47 Urine Protein Negative mg/dL (Neg-Trace) 02/12/19 17:47 Urine Glucose (UA) Normal mg/dL (Normal) 02/12/19 17:47 Urine Ketones Negative mg/dL (Negative) 02/12/19 17:47 Urine Blood Negative (Negative) 02/12/19 17:47 Urine Nitrite Negative (Negative) 02/12/19 17:47 Urine Bilirubin Negative (Negative) 02/12/19 17:47 Urine Urobilinogen Normal mg/dL (Normal) 02/12/19 17:47 Ur Leukocyte Esterase Negative (Negative) 02/12/19 17:47 Salicylates < 2.5 mg/dL (15.0-30.0) L 02/12/19 15:30 Urine Opiates Screen Negative ng/mL (Fbwnet=041) 02/12/19 17:47 Ur Buprenorphine Scrn Negative ng/mL (Cutoff=5) 02/12/19 17:47 Acetaminophen < 10 mcg/mL (10-20) L 02/12/19 15:30 Ur Barbiturates Screen Negative ng/mL (Ahnlsz=183) 02/12/19 17:47 Ur Phencyclidine Scrn Negative ng/mL (Cutoff=25) 02/12/19 17:47 Ur Amphetamines Screen Positive ng/mL (Apjvzc=5856) H 02/12/19 17:47 U Benzodiazepines Scrn Negative ng/mL (Telqrl=609) 02/12/19 17:47 Urine Cocaine Screen Negative ng/mL (Cutoff= 300) 02/12/19 17:47 U Marijuana (THC) Screen Negative ng/mL (Cutoff = 50) 02/12/19 17:47 Ur Drug Screen Interp See Below 02/12/19 17:47 Ethyl Alcohol 88 mg/dL (Less than 10) H 02/12/19 18:08 Assessment and Plan (1) Adjustment disorder with depressed mood Current visit: No Status: Acute Plan: Admit inpatient for safety and stabilization, Close observation, Suicide Precautions per unit protocol, Encourage participation in unit milieu, Group Therapy, Monitor sleep, Monitor appetite Additional Plan: Interested in restarting home medication seroquel Requesting an antidepressant that will also help with chronic back pain Risks, benefits, side effects, alternatives discussed w/pt: Yes Patient agreeable to treatment: Yes Plans for Post Hospital Care: Home Estimated Length of Stay (Days): 3 (2) Suicidal ideation Current visit: Yes Status: Acute Plan: Admit inpatient for safety and stabilization, Close observation, Suicide Precautions per unit protocol, Encourage participation in unit milieu, Group Therapy, Monitor sleep, Monitor appetite Risks, benefits, side effects, alternatives discussed w/pt: Yes Patient agreeable to treatment: Yes Plans for Post Hospital Care: Home Estimated Length of Stay (Days): 3 (3) Antisocial personality disorder Current visit: Yes Status: Chronic Plan: Admit inpatient for safety and stabilization, Close observation, Suicide Precautions per unit protocol, Encourage participation in unit milieu, Group Therapy, Monitor sleep, Monitor appetite Risks, benefits, side effects, alternatives discussed w/pt: Yes Patient agreeable to treatment: Yes Plans for Post Hospital Care: Home - Attending Attestation I examined this patient and my medical decision-making was reviewed with the Resident Physician. I agree with the documented findings, disposition and treatment plan as described except to the extent set forth below. Client changing his story repeatedly. Asked this global technical writer for Seroquel. Claims he was taking it in longterm but did not have any when released. Told resident he was on Seroquel prior to longterm but had it stopped when incarcerated. Claims he had recent prescriptions for Vicodin and Ativan but just said "ok" when told an [place] report showed no fills of these medications. While in the interview with this global technical writer client kept seizing up like he was in pain. States he gets severe muscle spasms and this is why he takes benzos and pain meds. Eventually terminated interview early because he reported the pain was too intense to continue talking. Was in a position on the couch and popped right up and walked out of room when he decided he was done. At no point did spasms look genuine. Client very vague about his mental and physical health history. No current providers. Claims he is homeless. Plans to [facility] for help with housing at the time of discharge. Tox screen positive for meth. Current clinical presentation most consistent with Antisocial Personality Disorder. Some vague SI. Expect SI will be short lived if client does not get his desired medications and assistance with housing. States he wants discharged to an apartment or house but has neither of these currently.
--- NOTE | 2019-02-14 09:23 | Discharge Summary ---
Date of Encounter: 02/14/19 Time of Encounter: 09:15 Diagnosis - Discharge Diagnosis (1) Adjustment disorder with depressed mood Status: Acute (2) Antisocial personality disorder Status: Chronic Medications - Discharge Medications Prescriptions: Quetiapine Fumarate [Seroquel] 100 mg PO HS #30 tab Transmission Status: Pending to [facility] Quetiapine Fumarate [Seroquel] 100 mg PO HS #30 tab 02/14/19 [Rx] Allergy/AdvReac Type Severity Reaction Status Date / Time chlorpromazine Allergy See Verified 03/08/18 12:39 [From Thorazine] Comments Results Procedures and tests throughout hospitalization: Completed Lab Orders Category Date Time Status Acetaminophen Stat Lab 02/12/19 15:30 Completed Basic Metabolic Panel Stat Lab 02/12/19 15:30 Completed Complete Blood Count [HEME] Stat Lab 02/12/19 15:30 Completed Drug Screen, Urine [UCHEM] Stat Lab 02/12/19 17:47 Completed Ethanol Stat Lab 02/12/19 15:30 Completed Ethanol Stat Lab 02/12/19 18:08 Completed Salicylate Stat Lab 02/12/19 15:30 Completed Urinalysis reflex Microscopic [URIN] Stat Lab 02/12/19 17:47 Completed Provider Date of admission: 02/12/19 20:14 Primary care physician: PCP NONE Discharging clinician: Mariah Galeano Psychiatry Exam - Constitutional Vitals: Temp Pulse Resp BP Pulse Ox 98.7 F 76 17 111/77 76 02/13/19 20:57 02/13/19 20:57 02/13/19 20:57 02/13/19 20:57 02/13/19 20:57 General appearance: age & developmentally appropriate, well-groomed, well- nourished - Musculoskeletal Gait: normal Station: relaxed Strength & Tone: normal for patient - Psychiatric Patient Orientation: Yes Person, Yes Time, Yes Place Level of alertness: Alert Behavior: calm, cooperative Psychomotor activity: Normal Eye Contact: Maintains Eye Contact Mood Description: Euthymic/stable Affect description: congruent with mood, full range Speech Volume: Normal Speech pattern: normal rate, normal rhythm, normal tone, fluent, spontaneous Language & Vocabulary: consistent with education Thought Process: Linear, Goal Oriented Thought Content: No Suicidal ideation, No Homicidal ideation, No Overt delusions Perceptual Disturbances: No Auditory hallucinations, No Visual hallucinations Attention Span Ability: Capable of Focused Attention Memory Description: Grossly Intact Patient Reliability: Questionable Historian Fund of knowledge: Yes abstraction ability, Yes aware of current events Intelligence Estimate: Average Judgment: Limited Insight: Partial Hospital Course Hospital course: Mr. Griffin is a 43 year old male who was admitted for SI. He was recently released from long-term and is homeless. Claims he was not released with his Seroquel and needed to restart it. Yesterday client was very med seeking and was asking for things like Vicodin, Ativan, and Thorazine. Feigned muscle spasms in order to get meds and quickly terminated interview when he realized he was not getting what he wanted. However, his Seroquel was restarted and last night he slept well. Today he is much more pleasant. Reports he feels much better being back on this medication. Denying any further SI, intent, or plan. Bright, reactive, and future oriented. Wants discharged [facility]. States he has a welfare case worker there that will help him with housing. Not currently linked with outpatient providers but given the phone number to [facility] and plans to call in next week to have psychiatric social worker help set him up with follow up appointments. Feels safe to go. He is resourceful and knows how to link himself with the services he needs. Has not hesitated in the past to ask for help when he has needed it. Total time spent with client greater than 30 minutes. Patient was educated of his diagnosis and the risks, benefits, and side effects of this treatment and alternative treatment options and was monitored for responsiveness and side effects. Mood, anxiety, sleep, appetite, and interest improved, as did future orientation. Self-harm thoughts subsided, thinking cleared, psychosis resolved, and mood stabilized. Patient was able to attend both individual and group therapy sessions as well as meeting with the psychiatrist daily and urged to discuss any medication or treatment issues or other concerns. The patient was educated primarily by verbal means about their diagnosis and manifestations in their life. The option for treatment including group and individual therapy programming was offered to the patient in the use of medications with all their potential risks, benefits, and side effects were discussed with the patient at length. The patient was given the opportunity to ask questions and was noted to participate in the treatment in the planning process. The patient felt ready and eager to be discharged from the inpatient psychiatric unit to continue on with treatment as an outpatient. The patient agreed that he is safe for this disposition. The patient was considered to be able to participate in informed consent and decision making with respect to medical, legal, and financial issues of the time of discharge. At the time of discharge the patient adamantly denied any concerns for lethality including eaton icidal or homicidal thoughts ideations or plans and was future oriented toward ongoing mental health care, medical follow-up and sobriety. - Time Spent with Patient Total time spent providing and/or coordinating discharge services: Greater than 30 minutes Assessment and Plan - Patient/Caregiver Discharge Instructions Activity: resume usual activities as tolerated Diet: regular diet - Follow up Plan Functional capacity at discharge: independent ambulation Overall status at discharge: Stable Disposition: Home, Self-Care Quality - Multiple Antipsychotics Patient discharged on 2 or more antipsychotic medications: No Procedures - Procedures Procedures: Medication Management, Crisis Stabilization, Supportive Therapy, Group Therapy
[2019-02-14 09:36] VITALS: BP 120/80
== END 2019-02-14 10:10 | disposition home or self-care (01) | DRG 881 ==
LOC: EMEROOARM 14:33 → 1ANU 20:14
PROVIDERS: ADMIT Psychiatry & Neurology Psychiatry; ATTEND Psychiatry & Neurology Psychiatry

== ENCOUNTER 2021-01-04 18:43 | Observation (INO) ==
[2021-01-04 19:20] LABS: Basophils % 0.6 %; Eosinophils # 0.1 K/mcL (0.0-0.6); Eosinophils % 1.9 %; Hematocrit 40.8 % (37.5-50.1); Hemoglobin 14.3 g/dL (12.9-16.9); Immature Granulocytes % 0.3 % (0-4); Lymphocytes # 1.1 K/mcL (0.6-4.6); Lymphocytes % 17.6 %; Mean Corpuscular Hemoglobin 31.9 pg (28.0-33.3); Mean Corpuscular Volume 91.1 fL (83.0-100.0); Mean Platelet Volume 11.1 fL (9.4-12.4); Monocytes # 0.6 K/mcL (0.0-1.3); Neutrophils # 4.5 K/mcL (1.6-8.9); Platelet Count 158 K/mcL (140-400); Red Blood Count 4.48 M/mcL (4.19-5.50); Red Cell Distribution Width 12.3 % (11.5-14.5); Segmented Neutrophils % 69.6 %; White Blood Count 6.4 K/mcL (4.3-11.1)
[2021-01-04] MEDS ORDERED: Tdap (Boostrix) Vaccine 0.5 ML SYRINGE IM ONE (19:25)
[2021-01-04 19:37] LABS: Acetaminophen < 10 mcg/mL (10-20); BUN/Creatinine Ratio 26 (6-26); Blood Urea Nitrogen 24 mg/dL (6-20); Calcium 9.3 mg/dL (8.6-10.3); Carbon Dioxide 25 mEq/L (23-29); Chloride 104 mEq/L (98-107); Chol/HDL Ratio 2.8 (0-4.9); Cholesterol 136 mg/dL (< 200); Ethanol < 10 mg/dL (Less than 10); Glucose 117 mg/dL (70-105); HDL Cholesterol 48 mg/dL (40-59); LDL Cholesterol,Calculated 81 mg/dL (< 100); Osmolality,Calculated 293 (280-300); Potassium 3.6 mEq/L (3.5-5.1); Salicylate < 2.5 mg/dL (15.0-30.0); Sodium 139 mEq/L (136-145); Triglycerides 34 mg/dL (< 150); eGFR For African Americans > 60 (> 60); eGFR For Non-African Americans > 60 (> 60)
[2021-01-04 19:58] LABS: Estimated Average Glucose 97 mg/dl
[2021-01-04 20:25] LABS: Amphetamine Screen,Urine Negative ng/mL (Cutoff=1000); Barbiturate Screen,Urine Negative ng/mL (Cutoff=200); Benzodiazepines Screen,Urine Negative ng/mL (Cutoff=200); Cannabinoid Screen,Urine Negative ng/mL (Cutoff = 50); Cocaine Screen,Urine Negative ng/mL (Cutoff= 300); Opiate Screen,Urine Negative ng/mL (Cutoff=300); Phencyclidine Screen,Urine Negative ng/mL (Cutoff=25)
[2021-01-04 20:29] LABS: Bilirubin,Urine Negative (Negative); Blood,Urine Negative (Negative); Clarity,Urine Clear (Clear); Color,Urine Yellow (Yellow); Glucose,Urine (UA) Normal (Normal); Ketones,Urine 10 mg/dL (Negative); Leukocyte Esterase,Urine Negative (Negative); Nitrite,Urine Negative (Negative); PH,Urine 5.5 pH Units (5.0-8.0); Protein,Urine Trace mg/dL (Neg-Trace); Specific Gravity,Urine 1.026 (1.010-1.025)
[2021-01-04 21:03] LABS: Influenza A PCR Negative (Negative); Influenza B PCR Negative (Negative); Resp. Syncytial Virus PCR Negative (Negative); SARS-CoV-2 by PCR (In House) Negative (Negative)
[2021-01-04] MEDS ORDERED: QUEtiapine Fumarate 100 MG TABLET PO STA (22:41)
[2021-01-05 08:21] VITALS: O2SAT 99
[2021-01-05] MEDS ORDERED: Acetaminophen 325 MG TABLET PO PRN (08:23)
[2021-01-05] MEDS ORDERED: Nicotine 2 MG GUM BC PRN (08:23)
[2021-01-05] MEDS ORDERED: Mag Hydrox/Al Hydrox/Simeth 30 ML UDC PO PRN (08:23)
[2021-01-05] MEDS ORDERED: haloperidoL 5 MG TABLET PO PRN (08:23)
[2021-01-05] MEDS ORDERED: MOM Conc 10 ML UD.LIQ PO PRN (08:23)
[2021-01-05] MEDS ORDERED: Haloperidol Lactate 5 MG/ML VIAL IM PRN (08:23)
[2021-01-05] MEDS ORDERED: hydrOXYzine pamoate 25 MG CAPSULE PO PRN (08:23)
[2021-01-05] MEDS ORDERED: *HR* LORazepam 2 MG/ML VIAL IM PRN (08:23)
[2021-01-05] MEDS ORDERED: traZODone 50 MG TABLET PO PRN (08:23)
[2021-01-05] MEDS ORDERED: *HR* LORazepam 1 MG TABLET PO PRN (08:23)
[2021-01-05 09:44] VITALS: BP 111/74; PULSE 87; TEMP 98.1
== END 2021-01-05 15:10 | disposition home or self-care (01) ==
LOC: 1ANU 18:43 → EMEROOARM 18:43 → 1ANU 01-05 09:20
PROVIDERS: ADMIT Psychiatry & Neurology Psychiatry; ATTEND Psychiatry & Neurology Psychiatry